=== PATIENT | male | born 1950 | race Asian ===

== ENCOUNTER 2021-07-08 00:51 | Emergency (ER) | payer MEDICARE, OTHER ==
[~2021-07-08] VITALS: Ht 162.6 cm; Wt 68.5 kg
[~2021-07-08 00:51] MED LIST: AMLO-212 PO; ATOR10TA PO; HYDR12.55 PO; LOSA50TA39 PO
[2021-07-08 01:17] LABS: BASOPHILS # (AUTO) 0.1 K/uL (0.0-0.2); BASOPHILS % (AUTO) 1.2 % (0.0-2.0); EOSINOPHILS % (AUTO) 3.8 % (0.0-6.0); HEMATOCRIT 38 % (39-51); HEMOGLOBIN 12.6 g/dL (13.5-17.5); LYMPHOCYTES # (AUTO) 2.4 K/uL (0.8-4.8); LYMPHOCYTES % (AUTO) 36.3 % (20.0-44.0); MEAN CORPUSCULAR HGB CONC 33 g/dl (31.0-36.0); MEAN CORPUSCULAR VOLUME 87 fL (80-96); MONOCYTES # (AUTO) 0.7 K/uL (0.1-1.30); MONOCYTES % (AUTO) 11.1 % (2.0-12.0); NEUTROPHILS # (AUTO) 3.1 K/uL (1.8-8.9); NEUTROPHILS % (AUTO) 47.6 % (43.0-81.0); PLATELET COUNT (AUTO) 296 K/uL (150-450); WHITE BLOOD COUNT (AUTO) 6.6 K/uL (4.3-11.0)
[2021-07-08 01:41] LABS: CREATININE 1.1 mg/dL (0.6-1.3); POTASSIUM 3.9 mmol/L (3.5-5.1)
[2021-07-08] MEDS ORDERED: ASPIRIN 81 MG TAB.CHEW ONE (01:42)
--- NOTE | 2021-07-08 01:45 | NUR ---
SPOKE WITH [facility], FAX FACESHEET, EKG, LABS TO
[2021-07-08] MEDS ORDERED: NITROGLYCERIN 0.4 MG/TAB BOTTLE ONE (01:49)
[2021-07-08 01:59] LABS: ALBUMIN 3.7 g/dL (3.4-5.0); BILIRUBIN,DIRECT 0.1 mg/dL (0.0-0.2); BILIRUBIN,TOTAL 0.2 mg/dL (0.2-1.0); TOTAL PROTEIN, SERUM 7.4 g/dL (6.4-8.2)
[2021-07-08] MEDS ORDERED: ASPIRIN 81 MG TAB.CHEW PO ONE (02:00)
[2021-07-08] MEDS ORDERED: NITROGLYCERIN 0.4 MG/TAB BOTTLE SL ONE (02:00)
--- NOTE | 2021-07-08 02:00 | NUR ---
FACESHEET AND EKGS FAXED TO [facility]
[2021-07-08] MEDS ORDERED: CT SWABBABLE VALVE TRANS SET 1 EA INFUS.SET MC ONE (02:01)
[2021-07-08] MEDS ORDERED: IOHEXOL-350 100 ML VIAL IV ONE (02:01)
[2021-07-08] MEDS ORDERED: IV NS 0.9% 250 ML IV ONE (02:01)
--- NOTE | 2021-07-08 02:21 | NUR ---
CALLED [facility] FOR STAT READ ON CTA FOR DISSECTION.
[2021-07-08] MEDS ORDERED: HEPARIN SODIUM, PORCINE 5000 UNITS/1 ML VIAL IV ONE (02:30)
--- NOTE | 2021-07-08 02:30 | NUR ---
CALLED [facility]. ALERT SENT FOR CODE STEMI, RADIOLOGIST WILL CALL [facility].
--- NOTE | 2021-07-08 02:40 | NUR ---
CALL TO GIVEN REPORT ROOM [id number]
[2021-07-08] MEDS ORDERED: HEPARIN SODIUM, PORCINE 5000 UNITS/1 ML VIAL ONE (02:50)
--- NOTE | 2021-07-08 02:55 | NUR ---
REPORT GIVEN TO NURSE WOMACK AT [facility]
--- NOTE | 2021-07-08 03:26 | NUR ---
ems at bed side report given pt going to [facility].
[2021-07-08 03:27] VITALS: BP 143/78
== END 2021-07-08 03:29 | disposition short-term general hospital (02) ==
LOC: ER 00:53
DX: I21.4 Non-ST elevation (NSTEMI) myocardial infarction (principal); I77.810 Thoracic aortic ectasia; Z20.822 Contact with and (suspected) exposure to COVID-19; I10 Essential (primary) hypertension; Z79.899 Other long term (current) drug therapy; J98.11 Atelectasis; I25.10 Atherosclerotic heart disease of native coronary artery without angina pectoris
CPT/HCPCS: 36415; 71045; 71275; 80048; 80076; 83880; 84484; 85025; 85610; 85730; 87426; 93005; 96374; 99291; C9803; J1644; J7050; Q9967